=== PATIENT | female | born 1945 | race Hispanic/Latino ===

== ENCOUNTER 2019-06-15 05:56 | Day surgery (SDC) | payer MEDICARE ==
--- NOTE | 2019-06-14 20:18 | Short Stay Summary ---
Short Stay Documentation Date of service: 06/15/19 - History H&P: obtained from office - Allergies and Medications Current Medications: Allergies No Known Allergies Allergy (Verified 06/14/19 09:16) Active Medications Acetaminophen (Tylenol) 1,000 mg PO PREOP ONE Stop: 06/15/19 06:01 Celecoxib (Celebrex) 200 mg PO PREOP NR Gabapentin (Neurontin) 600 mg PO PREOP EMILY Lactated Ringer's (Lactated Ringers) 1,000 mls @ 100 mls/hr IV DIRECT EMILY Cefazolin Sodium (Ancef/Sterile Water 2 Gm/20 Ml) 2 gm in 20 mls @ 80 mls/hr IV PREOP NR; Protocol - Physical exam General appearance: no acute distress Integumentary: no rash HEENT: Atraumatic Lungs: Normal air movement Neurological: Normal speech - Brief post op/procedure progress note Date of procedure: 06/15/19 (dictation:[id number]) Pre-op diagnosis: back skin mass Post-op diagnosis: same Procedure: Excision of back skin mass IVF - 600cc EBL min Anesthesia: MAC Findings: 2x2.5x3.5 skin mass that appeared to be a cyst Surgeon: BRENDON SAM Estimated blood loss: minimal Pathology: list (skin mass) Specimen disposition: to lab Condition: stable - Hospital course Hospital course: uneventful - Disposition Condition at discharge: Stable Disposition: DC-01 TO HOME OR SELFCARE Short Stay Discharge Plan Diet: regular Wound: per your surgeon's advice Special Instructions: no heavy lifting Additional Instructions: Post Operative Instructions May shower on Thursday. Pat dry the wound or wounds. Wound - Keep clean and dry, open to air. After surgery, start with a light diet. Consider having a liquid diet first. If you do well, you can advance to a regular diet as you feel comfortable. Apply an ice pack to the wound or wounds for 10-20 minutes at a time. Do this at least 4-5 times a day. You can do it more if he would like. Alternate the use of ibuprofen and Tylenol for the first 2 days. I want you to take these on a scheduled basis. Take 600 mg of ibuprofen every 6 hours. Take 500 mg of Tylenol every 6 hours. You should alternate these 2 medicines. In other words, beginning with the ibuprofen. After 3 hours, take the Tylenol. Keep alternating the 2 drugs every 3 hours. Do this on a scheduled basis for the first 2 days. After that, you can take them as needed. It is very important that you use the prescription pain medicine only for very severe pain. Do not take the prescription medicine before you try using the ibuprofen and Tylenol. We will call you in a couple of days to see how youre doing. If you have any questions or concerns, always feel free to call the clinic at any time. FOLLOW SURGEON INSTRUCTION SHEETS. NO HEAVY LIFTING Follow up with: GENESIS BETTS MD [Primary Care Provider] - 7 Days BRENDON SAM MD [Staff Physician] - 14 Days Forms: Outpatient Surgery DC Inst. Prescriptions: HYDROcodone/APAP 5-325 [[place] 5-325 mg TAB] 1 each PO Q6HR PRN #10 tablet PRN Reason: Pain , Severe (7-10)
[~2019-06-15 05:56] MED LIST: LACTATED RINGERS 1,000 ML IV SCH
[2019-06-15] MEDS ORDERED: ANCEF/STERILE WATER 2 GM/20 ML 2 GM/20 ML SYRINGE IV NR (06:00)
[2019-06-15] MEDS ORDERED: NEURONTIN PO SCH ×2 (06:00→07:30)
[2019-06-15] MEDS ORDERED: TYLENOL PO ONE (06:00)
[2019-06-15] MEDS ORDERED: MARCAINE-EPI 0.5%-1:200,000 INFILTRATI ONE ×2 (07:09→08:18)
[2019-06-15] MEDS ORDERED: XYLOCAINE 1% 20 mL ONE (07:09)
--- NOTE | 2019-06-15 07:26 | Anesthesia Day of Surgery ---
Anesthesia Day of Surgery - Day of Surgery Patient Examined: Yes Patient H&P Reviewed: Yes Patient is NPO: Yes
--- NOTE | 2019-06-15 07:26 | Anesthesia Consultation ---
Anesthesia Consult and Med Hx Date of service: 06/15/19 - Airway Anesthetic Teeth Evaluation: Poor (denies loose teeth) ROM Head & Neck: Adequate Mental/Hyoid Distance: Inadequate Mallampati Class: Class II Intubation Access Assessment: Probably Good - Pulmonary Exam CTA: Yes - Cardiac Exam Cardiac Exam: RRR - Pre-Operative Health Status ASA Pre-Surgery Classification: ASA2 Proposed Anesthetic Plan: MAC - Pulmonary Hx Smoking: Yes (quit 25yrs ago) Hx Respiratory Symptoms: No - Cardiovascular System Hx Hypertension: Yes Hx Heart Attack/AMI: No Hx Percutaneous Transluminal Coronary Angioplasty (PTCA): No Hx Cardia Arrhythmia: No - Central Nervous System Hx Seizures: No CVA: No - Gastrointestinal Hx Gastroesophageal Reflux Disease: No - Endocrine Hx Renal Disease: No Hx Liver Disease: No Hx Insulin Dependent Diabetes: No Hx Non-Insulin Dependent Diabetes: No Hx Hypothyroidism: Yes (s/p partial thyroidectomy) - Other Systems Hx Alcohol Use: Yes (WINE) Hx Obesity: Yes - Additional Comments Anesthesia Medical History Comments: No hx anesthetic complications.
[2019-06-15] MEDS ORDERED: SUBLIMAZE IV PRN (07:30)
[2019-06-15] MEDS ORDERED: XYLOCAINE MPF 2% ONE (07:34)
[2019-06-15] MEDS ORDERED: SUBLIMAZE ONE (07:34)
[2019-06-15] MEDS ORDERED: DIPRIVAN 10 MG/ML IV ONE (07:35)
[2019-06-15] MEDS ORDERED: VERSED ONE (08:10)
[2019-06-15] MEDS ORDERED: KETAMINE 50 MG/ML-WATER SYRING ONE (08:15)
[2019-06-15] MEDS ORDERED: XYLOCAINE 1% 20 mL INFILTRATI ONE (08:18)
[2019-06-15 09:57] VITALS: BP 135/80
--- NOTE | 2019-06-15 11:30 | Post Anesthesia Evaluation ---
- Post Anesthesia Evaluation Patient Participated: Yes Airway Patent: Yes Stable Respiratory Function: Yes Nausea/Vomiting: No Temp > 96.8F: Yes Pain Manageable: Yes Adequeate Hydration: Yes Anesthesia Complications: No
--- NOTE | 2019-06-15 14:38 | Operative Report ---
PREOPERATIVE DIAGNOSIS: Back skin mass. POSTOPERATIVE DIAGNOSIS: Back skin mass. PROCEDURE: Excision of back skin mass. ATTENDING PHYSICIAN: Stacey Bella MD ANESTHESIA: Local MAC. ESTIMATED BLOOD LOSS: Minimal. FLUIDS: 600 mL. FINDINGS: A 2 x 2.5 x 3.5 cm skin mass in the subcutaneous tissue that was adhered to the overlying skin appeared to be consistent with a large sebaceous cyst. SPECIMENS: Above-mentioned mass. DRAINS: None. COMPLICATIONS: None. DISPOSITION: Stable, transferred to Recovery Room. INDICATIONS: This is a 73-year-old female who has a long history of a mass in her back that periodically has drained. Denies any infections or any recent complications. It does cause her pain, would like the mass excised. The patient is assessed to be an adequate candidate. Procedure risks, benefits were explained to the patient. Risks included but were not limited to infection, bleeding, pain, injury to surrounding structures, possible need for more surgery in the future. The patient understood and consented. OPERATIVE NOTE: The patient was brought to the operating room and placed on the table in a right lateral decubitus position. After adequate sedation was established, the patient was prepped and draped in the usual sterile fashion. Timeout was called. SCDs were in place. Antibiotics have been given. In the preoperative area, I had marked the lines of skin tension, so that hopefully we could place our incision in that direction. We anesthetized the planned incision area and then I carefully cut the skin with a scalpel down to the mass. As expected, it was very superficial and adhered to the overlying skin. We carefully dissected away the mass from the skin and surrounding subcutaneous tissue. We were able to get the cyst capsule as well. We dissected everything out and then passed the specimen off the table in sterile fashion. It appeared to be consistent with a sebaceous cyst. I examined the wound cavity. There may have been a very small area where a little bit of the cyst wall was left. I cauterized this area. The rest of it looked completely clean. I saw no other evidence of any residual cyst material. We made sure we had good hemostasis. Additional local was injected throughout the cavity as a precaution because we would have a large cavity that potentially could fill with blood or fluid. I packed it with Surgicel to minimize the risk of postoperative bleeding and then began the closure. I closed the deep layer with interrupted 3-0 Vicryl sutures and then closed the skin with a running 4-0 Monocryl subcuticular stitch. Skin was cleaned and dried. Dermabond and dressings were placed. The patient tolerated the procedure well. There were no complications. All counts were correct at the end of the case. I spoke with at the end of the case and he was appreciative. JOB# [id number] LAVELL/MARY
== END 2019-06-15 10:30 | disposition home or self-care (01) ==
LOC: OR 05:56
PROVIDERS: ATTEND Surgery
DX: R22.2 Localized swelling, mass and lump, trunk (principal); L72.0 Epidermal cyst; E78.00 Pure hypercholesterolemia, unspecified; I10 Essential (primary) hypertension; E66.9 Obesity, unspecified; E03.9 Hypothyroidism, unspecified; Z87.891 Personal history of nicotine dependence; Z79.899 Other long term (current) drug therapy; Z68.35 Body mass index [BMI] 35.0-35.9, adult; Z72.89 Other problems related to lifestyle; Z98.890 Other specified postprocedural states
CPT/HCPCS: 11404; 12032; 88305; J0690; J2250; J2704; J3010; J7120

== ENCOUNTER 2021-02-26 10:31 | Outpatient (CLI) | payer MEDICARE, BC ==
--- NOTE | 2021-02-26 12:17 | Mammography Report ---
DIGITAL SCREENING MAMMOGRAM WITH CAD, 02/26/2021 CLINICAL INFORMATION / INDICATION: Routine screening mammography. TECHNIQUE: Digital bilateral 2D mammography was obtained in the craniocaudal and mediolateral obliqu e projections. This examination was interpreted with the benefit of Computer-Aided Detection analysis . COMPARISON: 02/07/2020, 12/03/2018 FINDINGS: Breast Density: There are scattered areas of fibroglandular density. No dominant mass, suspicious calcifications, or architectural distortion in either breast. A biopsy clip is again seen in the upper outer right breast. No other significant interval changes ar e noted. IMPRESSION: No mammographic evidence of malignancy. Follow up recommendation: Routine yearly BI-RADS Category 2: Benign. A "normal" or negative report should not discourage follow up or biopsy of a clinically significant f inding. A written summary of these findings will be mailed to the patient. The patient will be entered into a mammography reporting system which will generate a reminder letter for the patient's next appointmen t at the appropriate interval. The [employer] recommends yearly mammograms starting at age 40 and continuing as l evette as a woman is in good health. Breast MRI is recommended for women with an approximate 20-25% or greater lifetime risk of breast cancer, including women with a strong family history of breast or ova yumiko cancer or who have been treated for Hodgkin's disease. Signer Name: Yahir Balderas MD Signed: 02/26/2021 12:12 PM Workstation Name: [id number]
== END 2021-02-26 10:32 | disposition home or self-care (01) ==
LOC: SPVWC 10:31
PROVIDERS: ATTEND Surgery
DX: Z12.31 Encounter for screening mammogram for malignant neoplasm of breast (principal); N64.89 Other specified disorders of breast
CPT/HCPCS: 77067

== ENCOUNTER 2022-03-10 08:12 | Outpatient (CLI) | payer MEDICARE, BC ==
--- NOTE | 2022-03-11 17:22 | Mammography Report ---
DIGITAL SCREENING MAMMOGRAM WITH CAD, 03/10/2022 CLINICAL INFORMATION / INDICATION: Routine screening mammography. TECHNIQUE: Digital bilateral 2D mammography was obtained in the craniocaudal and mediolateral obliqu e projections. This examination was interpreted with the benefit of Computer-Aided Detection analysis . COMPARISON: Prior mammogram 02/26/2021 and 02/07/2020 FINDINGS: Breast Density: There are scattered areas of fibroglandular density. No dominant mass, suspicious calcifications, or architectural distortion in either breast. There is a stable biopsy clip in the right breast. There has been no significant change compared with the prior examinations. An implanted cardiac device overlies the left axilla. IMPRESSION: No mammographic evidence of malignancy. Follow up recommendation: Routine yearly screening mammogram. BI-RADS Category 2: BENIGN. A "normal" or negative report should not discourage follow up or biopsy of a clinically significant f inding. A written summary of these findings will be mailed to the patient. The patient will be entered into a mammography reporting system which will generate a reminder letter for the patient's next appointmen t at the appropriate interval. The [employer] recommends yearly mammograms starting at age 40 and continuing as l evette as a woman is in good health. Breast MRI is recommended for women with an approximate 20-25% or greater lifetime risk of breast cancer, including women with a strong family history of breast or ova yumiko cancer or who have been treated for Hodgkin's disease. Signer Name: Brandi Lambert MD Signed: 03/11/2022 5:17 PM Workstation Name: [id number]
== END 2022-03-10 08:13 | disposition home or self-care (01) ==
LOC: MAMMO 08:12
PROVIDERS: ATTEND Family Medicine
DX: Z12.31 Encounter for screening mammogram for malignant neoplasm of breast (principal)
CPT/HCPCS: 77067